=== PATIENT | female | born 1985 | race Caucasian/White ===

== ENCOUNTER 2017-10-06 10:38 | Emergency (ER) | payer SELFPAY ==
[~2017-10-06] VITALS: Ht 162.5 cm; Wt 74.4 kg
[2017-10-06 11:09] LABS: BILIRUBIN 1+ (NEGATIVE); BLOOD 3+ (NEGATIVE); CLARITY CLOUDY (CLEAR); GLUCOSE TRACE (NEGATIVE); KETONE TRACE (NEGATIVE); LEUKO ESTERASE 2+ (NEGATIVE); NITRITE POSITIVE (NEGATIVE); SPECIFIC GRAVITY >= 1.030 (1.005-1.030)
[2017-10-06 11:11] LABS: COLOR ORANGE (YELLOW)
[2017-10-06 11:22] LABS: BACTERIA 4+; EPITHELIAL CELLS 20-25; RBC TNTC rbc/hpf (0-2); WBC TNTC wbc/hpf (0-5)
[2017-10-06] MEDS ORDERED: CIPRO500 MG PO (11:55)
== END 2017-10-06 11:58 | disposition home or self-care (01) ==
LOC: ED 10:38
PROVIDERS: Emergency Medicine
DX: N39.0 Urinary tract infection, site not specified (principal); F17.200 Nicotine dependence, unspecified, uncomplicated